=== PATIENT | female | born 1975 | race Caucasian/White ===

== ENCOUNTER 2017-02-05 09:33 | Day surgery (SDC) | payer MEDICAID ==
[2017-02-04 14:51] VITALS: BMI 25.4
[~2017-02-05] VITALS: Ht 160 cm; Wt 64.0 kg
[2017-02-05] VITALS (20 sets, daily range): BP systolic 111–143; BP diastolic 58–78; PULSE 62–97; RESP 17–20; Ht 160 cm; Wt 64.0 kg
[~2017-02-05 09:33] MED LIST: CEFAZOLIN 2 GM/50 ML (PMX) 50 ML IVPB SCH; EPHEDrine SULFATE 50 MG/5 ML SYG ONE; SOD CHLORIDE 0.9% 1,000 ML IV SCH
[2017-02-05 10:35] LABS: ADD SCAN DIFF NO
[2017-02-05 10:43] LABS: BASOPHIL # 0.1 10^3/ul (0.0-0.1); EOSINOPHILS # 0.4 10^3/ul (0.0-0.5); HEMATOCRIT 37.1 % (37.0-47.0); HEMOGLOBIN 11.9 g/dl (12.0-16.0); LYMPHOCYTES # 1.9 10^3/ul (0.8-2.9); LYMPHOCYTES % 36.9 % (15.0-51.0); MEAN CORPUSCULAR HEMOGLOBIN 26.3 pg (29.0-33.0); MEAN CORPUSCULAR HGB CONC 32.1 g/dl (32.0-37.0); MEAN CORPUSCULAR VOLUME 81.9 fl (82.0-101.0); MONOCYTE # 0.5 10^3/ul (0.3-0.9); MONOCYTES % 8.9 % (0.0-11.0); NEUTROPHIL # 2.4 10^3/ul (1.6-7.5); PLATELET COUNT 293 10^3/UL (140-415); RED BLOOD COUNT 4.53 10^6/ul (4.20-5.40); RED CELL DISTRIBUTION WIDTH 17.3 % (11.5-14.5); WHITE BLOOD COUNT 5.3 10^3/ul (4.8-10.8)
[2017-02-05 10:57] LABS: POTASSIUM 3.9 mmol/L (3.5-5.1)
[2017-02-05 11:01] LABS: CALCIUM 8.7 mg/dl (8.4-10.2); CREATININE 0.67 mg/dl (0.44-1.00)
[2017-02-05 11:04] LABS: PROTIME 13.2 Sec (12.2-14.2)
[2017-02-05 11:05] LABS: PARTIAL THROMBOPLASTIN TIME 27.2 Sec (25.0-35.0)
[2017-02-05] MEDS ORDERED: ISOSULFAN BLUE 1% 5 ML INJ SC ONE (11:55)
[2017-02-05] MEDS ORDERED: ROCURONIUM 50 MG INJ ONE (12:02)
[2017-02-05] MEDS ORDERED: PROPOFOL 20 ML ONE (12:02)
[2017-02-05] MEDS ORDERED: MIDAZOLAM 1 MG/ML 2 ML INJ ONE (12:02)
[2017-02-05] MEDS ORDERED: HYDROmorphONE (0.2 MG/ML) 10ML SYG IV PRN (12:30)
[2017-02-05] MEDS ORDERED: ONDANSETRON 4 MG INJ IV PRN ×2 (12:30→13:00)
[2017-02-05] MEDS ORDERED: CEFAZOLIN 1 GM INJ ONE (12:41)
[2017-02-05] MEDS ORDERED: ONDANSETRON 4 MG INJ ONE (12:45)
[2017-02-05] MEDS ORDERED: DEXAMETHASONE 4 MG/ML 1 ML INJ ONE (12:45)
[2017-02-05] MEDS ORDERED: FAMOTIDINE 20 MG INJ ONE (12:45)
[2017-02-05] MEDS ORDERED: ACETAMINOPHEN 1000MG/100ML IV 100 ML IVPB PRN (13:00)
[2017-02-05] MEDS ORDERED: morphine 2 MG INJ IV PRN (13:00)
--- NOTE | 2017-02-05 13:52 | OPR ---
DATE OF OPERATION: 02/05/2017 PREOPERATIVE DIAGNOSIS: Invasive cancer, right breast. POSTOPERATIVE DIAGNOSIS: Invasive cancer, right breast. OPERATION PERFORMED: Right partial mastectomy and axillary dissection utilizing sentinel lymph node technique. ANESTHESIOLOGIST: Dr. Dahl. SURGEON: Omer Veloz MD FUNERAL GREETER: Dr. Douglas and Dr. Rich. INDICATIONS FOR PROCEDURE: The patient is an unfortunate 41-year-old female who presented with a pa lpable mass in her right breast. Radiographic workup and subsequent biopsy confirmed an invasive ca ncer. She was counseled as to the risks versus benefits of surgery. She consented and was schedule d for surgery. DESCRIPTION OF PROCEDURE: The patient was brought to the operating theater, placed under general en dotracheal tube anesthesia. The right breast and axillary regions were prepped and draped in the [facility] sterile fashion. Approximately 4 mL of 1% Lymphazurin blue dye were then injected peritumorally . The breast was gently massaged for approximately 12 minutes. Subsequently, a 3 to 4 cm incision was made in the right axillary hairline. Subcutaneous tissue was dissected with cautery down throug h the clavipectoral fascia. A dye-stained lymphatic was identified, traced to a sentinel node. The re were multiple additional nodes in this area suspicious for malignancy. Therefore, Dr. Veloz made the decision to perform an axillary dissection with blunt dissection along the chest wall. The fransico g thoracic nerve was identified and kept out of harm's way. More superiorly, the axillary vein and thoracodorsal neurovascular bundle were identified and kept out of harm's way. Node bearing tissue between the long thoracic nerve and thoracodorsal nerve was meticulously dissected using the LigaSur e device. Specimen was removed and sent for intraoperative analysis of the sentinel nodes was perfo rmed by attending pathologist, Dr. Matt Lora. He did not find definite evidence of malignancy . Therefore, the specimen was sent for permanent pathologic analysis. The wound was irrigated. Mi nimal bleeding was controlled with cautery. A #10 flat Fernandez-Patel drain was then brought through the right mid axillary line, cut to size and laid within the axilla. It was secured in place with 2-0 nylon suture in a standard fashion. The skin was then reapproximated with a 4-0 Vicryl suture i n subcuticular fashion. Attention was then directed to performing partial mastectomy. The palpable tumor was in the upper o uter quadrant of the right breast and a curvilinear incision was made directly over it. Subcutaneou s tissue was dissected with cautery. The skin edges were then elevated with skin hooks and wide cir cumferential dissection of the tissue associated with the mass then took place, taking great care to ensure adequate margin. Specimen was elevated, transected, oriented, and sent for permanent pathol ogic analysis. The wound was then irrigated. Minimal bleeding was controlled with cautery. The sk in was then closed with a deep dermal layer of 4-0 Vicryl sutures, followed by final skin approximat ion with 5-0 PDS sutures in subcuticular fashion. Benzoin and Steri-Strips were then applied to bot h incisions. The patient tolerated the procedure well. Estimated blood loss was 30 mL. There were no complications and the patient was transported in stable condition to the recovery room. Dictated By: OMER SOSA/AFIA Conf#: [id number] DID#: [id number]
[2017-02-05] MEDS: D5W-0.45 NACL + KCL 20 MEQ 1,000 ML IV SCH ×2 (15:24→20:57)
--- NOTE | 2017-02-05 16:36 | HP ---
DATE OF ADMISSION: 02/05/2017 CHIEF COMPLAINT AND HISTORY OF PRESENT ILLNESS: The patient is a 41-year-old female with a history of a lump in her right breast, which was subsequently biopsied, which revealed a moderately differen tiated tumor which was ER positive, OR negative and HER-2 negative. The patient was seen by Dr. Michael handy as an outpatient and was brought in to the hospital today and underwent a right partial mastectom y and axillary dissection. The patient has significant postoperative pain and is being admitted for further evaluation and management. Denies any nausea or vomiting. No reported cough, headache, di zziness or syncope. No history of a sore throat. No history of fever or chills. No history of dys uria or hematuria. No history of any focal weakness. No history of acute skin rash or any joint sw elling. Rest of review of systems is unremarkable. PAST MEDICAL HISTORY: As stated above. PAST SURGICAL HISTORY: None. ALLERGIES: NONE. SOCIAL HISTORY: No smoking, no alcohol. FAMILY HISTORY: Patient's mother was diagnosed with breast cancer, although as per patient, she d due to Alzheimer's dementia. PHYSICAL EXAMINATION: GENERAL: The patient is conscious, awake, alert. VITAL SIGNS: Temperature 98, pulse 78, blood pressure 122/72, O2 saturations 99% on room air, pulse 78. HEENT: Conjunctivae and lids are normal. Oropharynx is clear. NECK: Supple. No mass, no thyromegaly. LUNGS: Clear to auscultation. No use of accessory muscles. CARDIOVASCULAR: S1, S2 normal. No murmur. ABDOMEN: Soft, nondistended, nontender. Bowel sounds plus. EXTREMITIES: No leg edema. NEUROLOGIC: The patient is awake, alert, fairly oriented, with no gross focal deficit. LABORATORY: WBC 5.3, hemoglobin 11.9, platelets 293. Sodium 138, potassium 3.9, BUN 13, creatinine 0.6, glucose 98, calcium 8.7. IMPRESSION: Right breast cancer, status post right partial mastectomy and axillary dissection. PLAN: Patient is admitted on the medical floor and will be started on a clear liquid diet, which wi ll be advanced as tolerated. Patient will be given IV fluid, IV Tylenol, [place] and IV morphine for pain control. If the patient continues to do well, she will be discharged home tomorrow. Dictated By: TRACEY VARGAS/AFIA Conf#: [id number] DID#: [id number]
[2017-02-05] MEDS: HYDROCODONE/APAP (5/325) TAB PO PRN ×2 (16:41→20:56)
[2017-02-06] VITALS: BP 106/55; RESP 18
[2017-02-06] MEDS: D5W-0.45 NACL + KCL 20 MEQ 1,000 ML IV SCH ×2 (03:58→13:12)
[2017-02-06 04:03] VITALS: BP 122/60; PULSE 70; RESP 17
[2017-02-06 07:00] VITALS: BP 111/67; RESP 20
--- NOTE | 2017-02-06 12:43 | PN ---
Date/Time of Note Date/Time of Note DATE: 02/06/17 TIME: 12:42 Assessment/Plan VTE Prophylaxis VTE Prophylaxis Intervention: other Lines/Catheters IV Catheter Type (from Nrsg): Peripheral IV Urinary Cath still in place: No Assessment/Plan Chief Complaint/Hosp Course 1) right breast cancer - s/p mastectomy - further management per surgery Problems: Subjective 24 Hr Interval Summary Free Text/Dictation Patient denies pain Exam/Review of Systems Vital Signs Vitals Vital Signs Date Time Temp Pulse Resp B/P Pulse Ox O2 Delivery O2 Flow Rate FiO2 02/06/17 07:00 97.9 62 20 111/67 100 02/06/17 04:03 Room Air Intake and Output 02/05/17 02/05/17 02/06/17 15:00 23:00 07:00 Intake Total 500 ml 1400 ml 1605 ml Output Total 35 ml 730 ml 1720 ml Balance 465 ml 670 ml -115 ml Exam Constitutional: well developed Head: atraumatic, normocephalic Neck: supple Respiratory: clear to auscultation Cardiovascular: regular rate and rhythm Gastrointestinal: non-tender, soft Extremities: normal pulses Results Result Diagram: 02/05/17 1020 02/05/17 1020 Medications Medications Current Medications Ondansetron HCl 4 mg 4 mg Q6H PRN IV NAUSEA AND/OR VOMITING; Start 02/05/17 at 13:00 Potassium Chloride/Dextrose/ Sod Cl (D5-1/2ns + KCl 20 Meq) 1,000 ml @ 125 mls/ hr Q8H IV Last administered on 02/06/17 03:58; Admin Dose 125 MLS/HR; Start at 12:52 Morphine Sulfate 2 mg 2 mg Q1H PRN IV PAIN; Start 02/05/17 at 13:00 Acetaminophen (Ofirmev 1000mg/ 100ml Iv) 100 ml @ 400 mls/hr Q6H PRN IVPB PAIN ; Start 02/05/17 at 13:00 Acetaminophen/ Hydrocodone Bitart (Kevil (5/325)) 1 tab Q4H PRN PO PAIN LEVEL 4 -6 Last administered on 02/05/17 20:56; Admin Dose 1 TAB; Start 02/05/17 at 16: 30 DAPHNIE HOFF Feb 06, 2017 12:43
--- NOTE | 2017-02-06 17:30 | PN ---
DATE: 02/06/2017 Postop day #1. SUBJECTIVE: Feels okay. No complaint. Minimal pain. Has been walking around. Has had a bowel m ovement. Tolerating diet. OBJECTIVE: VITAL SIGNS: Temperature 97.9, heart rate 62, respirations 20, blood pressure 115/67, saturation 1 00% on room air. Fernandez-Patel drain has drained 60 mL in 24 hours. ASSESSMENT: A 41-year-old female, status post right partial mastectomy and axillary dissection uti lizing sentinel lymph node technique. The patient is doing fine and is stable. Fernandez-Patel drain is serosanguineous fluid. PLAN: The patient is to be discharged today with pain medication. Followup by Dr. Ruiz. The nurs e to teach the patient and family how to take care of the Fernandez-Patel drain, how to empty that and how to measure it on a daily basis. Dictated By: DEVON RODRIGUEZ MD PS/NTS Conf#: [id number] DID#: [id number] CC: RADHA RUIZ MD;*EndCC*
== END 2017-02-06 17:25 | disposition home or self-care (01) ==
LOC: SDS 09:33 → MS1 15:00 → SDS 02-06 17:25
PROVIDERS: ATTEND Surgery Surgical Oncology
DX: C50.911 Malignant neoplasm of unspecified site of right female breast (principal)
CPT/HCPCS: 19301; 38500; 38792; 80048; 84703; 85025; 85610; 85730; 88307; 88313; J0690; J1100; J2250; J2405; J3010; J3480; Z7512; Z7610; Q9968

== ENCOUNTER → 2017-05-03 | Outpatient (CLI) | payer MEDICAID ==
--- NOTE | 2017-05-03 12:52 | RADRPT ---
PROCEDURE: MUGA scan CLINICAL INDICATION: 41 -year-old patient with neoplastic process , for the pre-chemotherapy evalu ation of the left ventricle ejection fraction. TECHNIQUE: Following the intravenous injection of 22.8 mCi of Tc-99m labeled red blood cells, rest ing gaited blood pool cardiac scintigraphic study was obtained. COMPARISON: No prior MUGA scans. FINDINGS: Resting gaited blood pool cardiac scintigraphic study demonstrates a normal ejection fraction of the left ventricle calculated to be 55 % (normal is greater than 50%). There is no evidence of wall motion abnormalities. IMPRESSION: 1. Normal ejection fraction of the left ventricle of 55 %. 2. No wall motion abnormalities. RPTAT: HH .Gladys Caputo MD, MD Date Time Electronically viewed and signed by .Gladys Caputo MD, on 05/03/2017 12:51 .L/
== END | disposition home or self-care (01) ==
LOC: NUC 10:51
PROVIDERS: ATTEND Internal Medicine
DX: C50.919 Malignant neoplasm of unspecified site of unspecified female breast (principal)
CPT/HCPCS: 78472; A9560; Z7610

== ENCOUNTER 2019-03-24 06:19 | Day surgery (SDC) | payer MEDICAID ==
[2019-03-24] VITALS (9 sets, daily range): BP systolic 94–121; BP diastolic 49–73; PULSE 57–72; RESP 15–18; Ht 160 cm; Wt 65.4 kg
[~2019-03-24] VITALS: Ht 160 cm; Wt 65.4 kg
[~2019-03-24 06:19] MED LIST changes: -EPHEDrine SULFATE 50 MG/5 ML SYG ONE
[2019-03-24] MEDS ORDERED: ACETAMINOPHEN 500 MG TAB PO ONE (06:30)
[2019-03-24] MEDS ORDERED: NOL20 PO (06:57)
--- NOTE | 2019-03-24 07:34 | PREAC ---
Date/Time of Note Date/Time of Note DATE: 03/24/19 TIME: 07:33 Anesthesia Eval and Record Evaluation Time Pre-Procedure Interview DATE: 03/24/19 TIME: 07:33 Age 43 Sex female NPO: 8 hrs Preoperative diagnosis R breast CA Planned procedure portacath removal Past Medical History Past Medical History: Includes (hx Breast CA - pt is ca free) Surgery & Anesthesia Issues No known issue Meds Anticoagulation: No Beta Davis within 24 hr: No Reason Beta Davis not given: Pt. not on B-Davis Reported Medications Tamoxifen Citrate* (Tamoxifen Citrate*) 20 Mg Tab, 20 MG PO DAILY, TAB 03/24/19 Current Medications Sodium Chloride 1,000 ml @ 75 mls/hr [id number] IV Last administered on 03/24/19at 07:00; Admin Dose 75 MLS/HR; Start 03/24/19 at 06:00; Stop 03/24/19 at 19:19 Cefazolin Sodium/ Dextrose 50 ml @ 100 mls/hr PREOP IVPB ; Start 03/24/19 at 06:00; Stop 03/24/19 at 16:00 Meds reviewed: Yes Allergies Coded Allergies: No Known Allergies (Unverified Allergy, Unknown, 03/24/19) Allergies Reviewed: Yes Labs/Studies Labs Reviewed: Reviewed by anesthesiologist test: Negative Pre-procedure Exam Last vitals Vital Signs Date Temp Pulse Resp B/P (MAP) Pulse Ox O2 O2 Flow FiO2 Time Delivery Rate 03/24/19 96.2 59 16 114/67 100 Room Air 07:14 (83) Airway: Adequate mouth opening, Adequate thyromental dist Mallampati: Mallampati II Teeth: Normal Lung: Normal Heart: Normal ASA Physical Status ASA physical status: 1 Emergency: None Planned Anesthetic General/MAC: LMA, MAC Pre-operative Attestations Prior to commencing anesthesia and surgery, the patient was re-evaluated, there was verification of: *The patient's identity *The results of appropriate recent lab work and preoperative vital signs *The above evaluation not changing prior to induction *Anesthetic plan, risk benefits, alternative and complications discussed with patient/family; questions answered; patient/family understands, accepts and wishes to proceed. Cigarette Making Machine Catcher used STACY THOMASON March 24, 2019 07:34
[2019-03-24] MEDS ORDERED: LIDOCAINE 1% (MPF) 30 ML INJ ONE (07:40)
[2019-03-24] MEDS ORDERED: HEPARIN 1000 UNITS/ML 10 ML INJ ONE (07:40)
[2019-03-24] MEDS ORDERED: FENTAnyl 50 MCG/ML VIAL ONE (07:59)
[2019-03-24] MEDS ORDERED: MIDAZOLAM 1 MG/ML 2 ML INJ ONE (07:59)
[2019-03-24] MEDS ORDERED: CEFAZOLIN 1 GM INJ ONE (07:59)
[2019-03-24] MEDS ORDERED: PROPOFOL 40 ML ONE (07:59)
[2019-03-24] MEDS ORDERED: LIDOCAINE 2% (SDV) 5 ML INJ ONE (07:59)
[2019-03-24] MEDS ORDERED: HYDROmorphONE 1 MG/5 ML IV SYRINGE IV PRN ×3 (08:00)
[2019-03-24] MEDS ORDERED: DIPHENHYDRAMINE 50 MG INJ IV PRN (08:00)
[2019-03-24] MEDS ORDERED: MEPERIDINE 25 MG INJ IV PRN (08:00)
[2019-03-24] MEDS ORDERED: OXYCODONE/ACETAMINOPHEN (5/325) TAB PO PRN ×2 (08:00)
[2019-03-24] MEDS ORDERED: LABETALOL HCL 20MG INJ IV PRN (08:00)
[2019-03-24] MEDS ORDERED: morphine 2 MG INJ IV PRN ×2 (08:00)
[2019-03-24] MEDS ORDERED: FENTAnyl 50 MCG/ML VIAL IV PRN ×2 (08:00)
[2019-03-24] MEDS ORDERED: ALBUTEROL 0.083% (NEB) 2.5 MG/3 ML AMP HHN PRN (08:00)
[2019-03-24] MEDS ORDERED: ONDANSETRON 4 MG INJ IV PRN (08:00)
[2019-03-24] MEDS ORDERED: EPHEDrine 25 MG/5 ML SYG ONE (08:48)
--- NOTE | 2019-03-24 08:51 | SIPON ---
Date/Time of Note Date/Time of Note DATE: 03/24/19 TIME: 08:49 Operative Report Preoperative Diagnosis History of breast cancer need for Chemo-Port removal Postoperative Diagnosis Same Operation/Procedure Performed Need for Chemo-Port removal Surgeon see signature line assistant store director Dr Rich Anesthesia: general Estimated blood loss: 0 - 10 ml's Transfusion Required none Specimen Chemo-Port gross only Grafts/Implants none Complications none RADHA RUIZ MD March 24, 2019 08:51
[2019-03-24] MEDS ORDERED: PHENYLephrine (100 MCG/ML) 10ML SYG ONE (08:56)
--- NOTE | 2019-03-24 09:11 | PAC ---
Date/Time of Note Date/Time of Note DATE: 03/24/19 TIME: 09:10 Post-Anesthesia Notes Post-Anesthesia Note Last documented vital signs Vital Signs Date Temp Pulse Resp B/P Pulse Ox O2 O2 Flow FiO2 Time (MAP) Delivery Rate 03/24/19 96.2 97.9 59 75 16 16 114/67 100 100 Room 07:14 090 (83) 94/ Air RA 2 49 Activity: WNL Respiratory function: WNL Cardiovascular function: WNL Mental status: Baseline Pain reasonably controlled: Yes Hydration appropriate: Yes Nausea/Vomiting absent: Yes STACY THOMASON March 24, 2019 09:11
--- NOTE | 2019-03-24 09:14 | OPR ---
DATE OF OPERATION: 03/24/2019 POSTOPERATIVE DIAGNOSIS: History of breast cancer, need for chemotherapy port removal. OPERATION PERFORMED: Removal of chemo port left subclavian location. ANESTHESIA: General. ANESTHESIOLOGIST: Nurse code and test clerk, Beth Medina. SURGEON: Omer Veloz MD DIE REPAIRER STAMPING: Nancy Rich MD INDICATIONS FOR PROCEDURE: The patient is a 43-year-old female that I previously treated for a right breast cancer. She successfully completed her treatment. She requested removal of her chemotherapy port. She consented and was scheduled for surgery. DESCRIPTION OF PROCEDURE: The patient was brought to the operating theater, placed under IV sedation . She was then placed into the Trendelenburg position and the left anterior thorax was prepped and d raped in usual sterile fashion. The area around the chemotherapy port was infiltrated with 1% lidoca ine local anesthetic with epinephrine. The previous surgical incisional scar overlying the port was incised with a #15 blade scalpel. Subcutaneous tissue was dissected with combination of sharp dissec tion and cautery. The port was then dissected from the surrounding tissue, gently elevated and withd rawn while pressure was held in clavicular location. Port appeared to be grossly intact. It was sen t for pathologic analysis to ensure that it was intact. The wound was then irrigated. Minimal bleed ing was controlled with cautery, and the skin was then reapproximated with a 5-0 PDS suture in subcut icular fashion, and benzoin and Steri-Strips were applied. The patient tolerated the procedure well. Estimated blood loss was 5 mL. There were no complications and the patient was transported in stab le condition to the recovery room. Dictated By: OMER VELOZ MD TL/NTS Conf#: [id number] DID#: [id number] CC: NANCY RICH MD;*EndCC*
== END 2019-03-24 11:45 | disposition home or self-care (01) ==
LOC: SDS 06:19
PROVIDERS: ATTEND Surgery Surgical Oncology
DX: Z45.2 Encounter for adjustment and management of vascular access device (principal); Z85.3 Personal history of malignant neoplasm of breast
CPT/HCPCS: 36590; J0690; J2250; J2370; J3010; Z7610; J1644